=== PATIENT | male | born 1955 | race Two or more races ===

== ENCOUNTER 2017-01-19 10:29 | Emergency (ER) | payer OTHER ==
--- NOTE | 2017-01-19 11:40 | ER Document Report ---
ED Medical Screen (RME) - General Chief Complaint: Headache Stated Complaint: HEADACHE/VISION PROBLEM Time Seen by Provider: 01/19/17 11:35 Mode of Arrival: Ambulatory Information source: Patient TRAVEL OUTSIDE OF THE [place] IN LAST 30 DAYS: No - HPI Patient complains to provider of: headache, Left vision loss Notes: 01/19/17 11:40 Patient is a 61-year-old male who presents to the emergency room for complaints of headache with burning sensation in the left side of the head, with loss of vision in the left eye, it is been going on for the past 2 weeks, states [facility] but he finally had the opportunity to do so today, patient has a history of hypertension and chronic back pain - Related Data Allergies/Adverse Reactions: No Known Allergies Allergy (Verified 01/19/17 10:37) Past Medical History Renal/ Medical History: Denies: Hx Peritoneal Dialysis Physical Exam - Vital signs Vitals: Temp Pulse Resp BP Pulse Ox 98.2 F 74 16 146/84 H 99 01/19/17 10:37 01/19/17 10:37 01/19/17 10:37 01/19/17 10:37 01/19/17 10:37 Course - Vital Signs Vital signs: Temp Pulse Resp BP Pulse Ox 98.2 F 74 16 146/84 H 99 01/19/17 10:37 01/19/17 10:37 01/19/17 10:37 01/19/17 10:37 01/19/17 10:37
--- NOTE | 2017-01-19 12:09 | RADIOLOGY REPORT (SQ) ---
EXAM DESCRIPTION: CT HEAD WITHOUT COMPLETED DATE/TIME: 01/19/2017 12:00 pm REASON FOR STUDY: headache, vision loss left eye COMPARISON: None. TECHNIQUE: Axial images acquired through the brain without intravenous contrast. Images reviewed wi th bone, brain and subdural windows. Images stored on PACS. All CT scanners at this facility use dose modulation, iterative reconstruction, and/or weight based d osing when appropriate to reduce radiation dose to as low as reasonably achievable (ALARA). [facility]: Dose Right [facility]: CareDose [facility]: Dose Right [facility]: Teradose 4D [facility]: [employer] RADIATION DOSE: mGy. LIMITATIONS: None. FINDINGS: VENTRICLES: Normal size and contour. CEREBRUM: No masses. No hemorrhage. No midline shift. Normal zuñiga/white matter differentiation. N o evidence for acute infarction. CEREBELLUM: No masses. No hemorrhage. No alteration of density. No evidence for acute infarction. EXTRAAXIAL SPACES: No fluid collections. No masses. ORBITS AND GLOBE: No intra- or extraconal masses. Normal contour of globe without masses. CALVARIUM: No fracture. PARANASAL SINUSES: Soft tissue in the right maxillary sinus. SOFT TISSUES: No mass or hematoma. OTHER: No other significant finding. IMPRESSION: NORMAL BRAIN CT WITHOUT CONTRAST. RIGHT MAXILLARY SINUS DISEASE. TECHNICAL DOCUMENTATION: JOB ID: [id number] Quality ID # [id number]: Final reports with documentation of one or more dose reduction techniques (e.g., Au tomated exposure control, adjustment of the mA and/or kV according to patient size, use of iterative reconstruction technique) 2010 [employer]- All Rights Reserved
[2017-01-19 12:21] LABS: ABSOLUTE BASOPHILS # (AUTO) 0.1 10^3/uL (0.0-0.2); ABSOLUTE EOSINOPHILS # (AUTO) 0.1 10^3/uL (0.0-0.6); ABSOLUTE LYMPHOCYTES (AUTO) 2.1 10^3/uL (0.5-4.7); ABSOLUTE MONOCYTES (AUTO) 1.1 10^3/uL (0.1-1.4); ABSOLUTE NEUT (AUTO) 6.6 10^3/uL (1.7-8.2); BASOPHILS % (AUTO) 0.7 % (0-2); EOSINOPHILS % (AUTO) 0.7 % (0-6); HEMATOCRIT 47.4 % (37.9-51.0); HEMOGLOBIN 15.9 g/dL (13.5-17.0); HGB HCT DIFFERENCE 0.3; MEAN CORPUSCULAR HEMOGLOBIN 31.8 pg (27.0-33.4); MEAN CORPUSCULAR HGB CONC 33.5 g/dL (32.0-36.0); MEAN CORPUSCULAR VOLUME 95 fl (80-97); MONOCYTES % (AUTO) 11.4 % (3-13); RED BLOOD COUNT 4.99 10^6/uL (4.35-5.55); RED CELL DISTRIBUTION WIDTH 13.5 % (11.5-14.0); SEGMENTED NEUTROPHILS % (AUTO) 66.2 % (42-78); WHITE BLOOD COUNT 9.9 10^3/uL (4.0-10.5)
[2017-01-19 12:50] LABS: ALANINE AMINOTRANSFERASE 34 U/L (21-72); ALBUMIN 4.5 g/dL (3.5-5.0); ALKALINE PHOSPHATASE 85 U/L (38-126); ANION GAP 12 (5-19); ASPARTATE AMINO TRANSFERASE 31 U/L (17-59); BILIRUBIN,DIRECT 0.4 mg/dL (0.0-0.4); BILIRUBIN,TOTAL 0.6 mg/dL (0.2-1.3); BLOOD UREA NITROGEN 26 mg/dL (7-20); CALCIUM 9.7 mg/dL (8.4-10.2); CARBON DIOXIDE 22 mmol/L (22-30); CHLORIDE 102 mmol/L (98-107); CREATININE RESULT 1.41 mg/dL (0.52-1.25); GLUCOSE 113 mg/dL (75-110); SODIUM 136.4 mmol/L (137-145); TOTAL PROTEIN 8.5 g/dL (6.3-8.2)
[2017-01-19 12:53] LABS: POTASSIUM 6.2 mmol/L (3.6-5.0)
[2017-01-19] MEDS ORDERED: DEXTROSE 50%-WATER 25 GM/50 ML DISP.SYRIN IV ONE ×4 (12:54→17:38)
[2017-01-19] MEDS ORDERED: CALCIUM GLUCONATE 1000 MG/10 ML INJ IV ONE (12:54)
[2017-01-19] MEDS ORDERED: INSULIN REG, HUMAN 100 UNIT/ML 3 ML VIAL (PYX) IV ONE (12:54)
--- NOTE | 2017-01-19 13:22 | ER Document Report ---
ED Headache - General Mode of Arrival: Ambulatory Information source: Patient TRAVEL OUTSIDE OF THE [place] IN LAST 30 DAYS: No - HPI Patient complains to provider of: Headache, Other - left eye blurry vision Onset: Other - 2-3 weeks Timing: Still present Associated symptoms: Other - see notes above <SONIA KEITH - Last Filed: 01/19/17 15:07> <BEBE GONZALEZ - Last Filed: 01/19/17 19:56> - General Chief Complaint: Headache Stated Complaint: HEADACHE/VISION PROBLEM Time Seen by Provider: 01/19/17 11:35 Notes: 61 year old male with history of hypertension presents to the ED complaining of a occipital and temporal headache and left eye blurry vision that has been present for 2-3 weeks. Patient reports that the headache has been constant and same since onset. Patient has not tried to taken any medication for his pain. The headaches are intermittent and last approximately 5 minutes, but resolve completely for hours at a time. Patient reports that his blurry vision does not resolve when his headache subsides. Patient denies history of overlapping images prior to onset of blurry vision. Patient is on hypertensive medication and medication for chronic back pain. (SONIA KEITH) - Related Data Allergies/Adverse Reactions: No Known Allergies Allergy (Verified 01/19/17 10:37) Past Medical History - General Information source: Patient - Social History Smoking Status: Unknown if Ever Smoked Family History: Reviewed & Not Pertinent Patient has suicidal ideation: No Patient has homicidal ideation: No - Past Medical History Cardiac Medical History: Reports: Hx Hypertension Renal/ Medical History: Denies: Hx Peritoneal Dialysis Past Surgical History: Reports: Hx Orthopedic Surgery - jaw rewiring <SONIA KEITH - Last Filed: 01/19/17 15:07> Review of Systems - Review of Systems Constitutional: No symptoms reported EENT: See HPI, Blurred vision - left eye Cardiovascular: No symptoms reported Respiratory: No symptoms reported Gastrointestinal: No symptoms reported Genitourinary: No symptoms reported Male Genitourinary: No symptoms reported Musculoskeletal: No symptoms reported Skin: No symptoms reported Hematologic/Lymphatic: No symptoms reported Neurological/Psychological: See HPI, Headaches -: Yes All other systems reviewed and negative <SONIA KEITH - Last Filed: 01/19/17 15:07> Physical Exam - General General appearance: Alert In distress: None - HEENT Head: Normocephalic, Atraumatic. No: Tenderness Eyes: Normal Extraocular movements intact: Yes Pupils: PERRL Neck: Normal - Respiratory Respiratory status: No respiratory distress Breath sounds: Normal - Cardiovascular Rhythm: Regular Heart sounds: Normal auscultation - Abdominal Inspection: Normal - Back Back: Normal - Extremities General upper extremity: Normal inspection, Normal ROM General lower extremity: Normal inspection, Normal ROM - Neurological Neuro grossly intact: Yes Cognition: Normal Orientation: AAOx4 Aleksandr Coma Scale Eye Opening: Spontaneous Aleksandr Coma Scale Verbal: Oriented Aleksandr Coma Scale Motor: Obeys Commands Aleksandr Coma Scale Total: 15 Cranial nerves: Other - When patient is focusing with right eye to the left, the patient is esotropic with left eye. When focusing right eye to the right there is improvement. - Psychological Associated symptoms: Normal affect, Normal mood - Skin Skin Temperature: Warm Skin Moisture: Dry Skin Color: Normal <SONIA KEITH - Last Filed: 01/19/17 15:07> - HEENT Eyes: No: Normal - The left was a little tender to palpate, but intraocular pressure was reading at 16 and 17. Conjunctiva: Normal Cornea: Normal Corrective lenses worn: No Left intraocular pressure: 17 Anterior chamber: Normal <BEBE GONZALEZ - Last Filed: 01/19/17 19:56> - Vital signs Vitals: Temp Pulse Resp BP Pulse Ox 98.2 F 74 16 146/84 H 99 01/19/17 10:37 01/19/17 10:37 01/19/17 10:37 01/19/17 10:37 01/19/17 10:37 Course - Laboratory Result Diagrams: 01/19/17 11:50 01/19/17 11:50 <SONIA KEITH - Last Filed: 01/19/17 15:07> - Laboratory Result Diagrams: 01/19/17 11:50 01/19/17 18:46 - Diagnostic Test Radiology reviewed: Image reviewed, Reports reviewed - CT scan of the head shows some right maxillary sinus disease but no other abnormality. - EKG Interpretation by Al EKG shows normal: Sinus rhythm, [place], Intervals, QRS Complexes. abnormal: ST-T Waves - Diffuse borderline ST depression Rate: Normal - 60 Rhythm: NSR [place]/QRS: IVCD When compared to previous EKG there are: Previous EKG unavailable - Consults Dr. Rocha Consulted provider: follow-up in office - tomorrow morning at 8:00 AM <BEBE GONZALEZ - Last Filed: 01/19/17 19:56> - Re-evaluation Re-evalutation: 01/19/17 15:28 Patient became tachycardic and diaphoretic. He had 25 g dextrose and 10 units insulin ordered from triage for the elevated potassium. A quick Accu-Chek shows a sugar of 36. He will be given 50 g of dextrose IV and a liter of D5 normal saline IV. 01/19/17 19:56 A repeat potassium is now down to 4.3, his BUN and creatinine are slightly improved. Lab work suggests he is not drinking enough fluids, but we have no lab work to compare to. (BEBE GONZALEZ) - Vital Signs Vital signs: Temp Pulse Resp BP Pulse Ox 98.2 F 74 19 131/78 H 100 01/19/17 10:37 01/19/17 10:37 01/19/17 19:00 01/19/17 16:01 01/19/17 19:00 - Laboratory Laboratory results interpreted by me: 01/19/17 01/19/17 01/19/17 11:50 17:31 18:46 Sodium 136.4 L Potassium 6.2 H* BUN 26 H 23 H Creatinine 1.41 H 1.27 H Est GFR (Non-Af Amer) 51 L 58 L Glucose 113 H POC Glucose 68 L Total Protein 8.5 H Discharge <SONIA KEITH - Last Filed: 01/19/17 15:07> <BEBE GONZALEZ - Last Filed: 01/19/17 19:56> - Discharge Clinical Impression: Blurred vision, left eye, Hyperkalemia Condition: Stable Disposition: HOME, SELF-CARE Additional Instructions: Follow-up with Dr. Rocha at [facility] tomorrow morning at 8 AM to have your vision problem evaluated. Avoid fruits and vegetables that are rich in potassium. RETURN TO THE EMERGENCY ROOM IF ANY NEW OR WORSENING SYMPTOMS. Referrals: [facility] [Provider Group] - 01/20/17 8:00 am Scribe Attestation: 01/19/17 19:55 I personally performed the services described in the documentation, reviewed and edited the documentation which was dictated to the scribe in my presence, and it accurately records my words and actions. (BEBE GONZALEZ) Scribe Documentation - Scribe Written by Suzy:: Suzy Jane, 01/19/2017 1334 acting as scribe for :: Patrick <SONIA KEITH - Last Filed: 01/19/17 15:07>
[2017-01-19] MEDS ORDERED: SODIUM POLYSTYRENE SULFONATE 15 GM/60 ML PO ONE (15:04)
[2017-01-19] MEDS ORDERED: TETRACAINE HCL 0.5% OPH SOLN 2 ML OS ONE (15:13)
[2017-01-19] MEDS ORDERED: DEXTROSE 5%-NORMAL SALINE 1,000 ML IV ONE (15:29)
--- NOTE | 2017-01-19 17:55 | EKG REPORT ---
SEVERITY:- ABNORMAL ECG - SINUS RHYTHM NONSPECIFIC INTRAVENTRICULAR CONDUCTION DELAY BORDERLINE ST DEPRESSION, DIFFUSE LEADS : Confirmed by: Johanna Scott MD 19-Jan-2017 17:54:55
[2017-01-19 19:15] LABS: ANION GAP 12 (5-19); BLOOD UREA NITROGEN 23 mg/dL (7-20); CALCIUM 9.2 mg/dL (8.4-10.2); CARBON DIOXIDE 22 mmol/L (22-30); CHLORIDE 105 mmol/L (98-107); CREATININE RESULT 1.27 mg/dL (0.52-1.25); GLUCOSE 105 mg/dL (75-110); SODIUM 138.5 mmol/L (137-145)
[2017-01-19 19:26] LABS: POTASSIUM 4.3 mmol/L (3.6-5.0)
[2017-01-19 20:28] VITALS: BP 134/76
== END 2017-01-19 20:29 | disposition home or self-care (01) ==
LOC: ER 10:29
DX: H53.8 Other visual disturbances (principal); E87.5 Hyperkalemia; R51 Headache; I10 Essential (primary) hypertension; M54.9 Dorsalgia, unspecified; G89.29 Other chronic pain
CPT/HCPCS: 93005; 96376; 99284; 96365; 96367; 36415; 82962; 85025; 80048; 80053; 70450; 93010; J0610; J3490; J1815